=== PATIENT | male | born 1960 | race African-American/Black ===

== ENCOUNTER 2018-09-12 01:02 | Inpatient (IN) ==
[2018-09-12] MEDS ORDERED: FUROSEMIDE 100 MG/10 ML VIAL IV STA (01:17)
[2018-09-12 01:50] LABS: Basophils # 0.1 10*3/uL (0.0-0.2); Basophils % 1.4 % (0.0-0.8); Eosinophils # 0.2 10*3/uL (0.0-0.87); Eosinophils % 4.5 % (0.00-10.9); Hematocrit 23.4 VOL% (42.0-52.0); Hemoglobin 7.5 GM/DL (14.0-18.0); Immature Granulocytes % 0.3 %; Immature Granulocytes Absolute 0.01 #; Lymphocytes # 0.9 10*3/uL (1.4-4.0); Lymphocytes % 25.8 % (21.2-54.2); Mean Corpuscular HGB Conc 32.1 GM/DL (32-36); Mean Corpuscular Hemoglobin 28 PG (27-34); Mean Corpuscular Volume 88.3 FL (87-102); Mean Platelet Volume 10.6 FL (9.6-12.0); Monocytes # 0.5 10*3/uL (0.11-0.8); Neutrophils # 1.9 10*3/uL (1.4-7.4); Platelet Count 171 T/CUMM (130-400); Red Blood Count 2.65 MC/CUMM (3.8-5.5); Red Cell Distribution Width 15.9 % (9.3-17.3); White Blood Count 3.6 T/CUMM (4-12)
[2018-09-12] MEDS ORDERED: FUROSEMIDE 40 MG/4 ML VIAL ONE (01:53)
[2018-09-12 02:30] LABS: PT Patient Result 32.8 SECS
[2018-09-12 02:31] LABS: Albumin 3.9 G/DL (3.4-5.0); Bilirubin,Total 0.5 MG/DL (0.2-1.0); Calcium 8.5 MG/DL (8.5-10.1); Osmolality,Calculated 273.5 MOS/KG (273-304); Potassium 4.9 MMOL/L (3.5-5.1); Total Protein 8.2 G/DL (6.4-8.3)
[2018-09-12] MEDS ORDERED: PANTOPRAZOLE INJ 80 MG in SODIUM CHLORIDE 0.9% 100 ML IV ONE (02:44)
[2018-09-12] MEDS ORDERED: PANTOPRAZOLE 40 MG VIAL IV ONE ×2 (03:02→03:03)
[2018-09-12] MEDS ORDERED: DEXTROSE 50% 25 GM/50 ML VIAL IV PRN (04:06)
[2018-09-12] MEDS ORDERED: ACETAMINOPHEN 325 MG TABLET PO PRN (04:06)
[2018-09-12] MEDS ORDERED: GLUCAGON 1 MG VIAL IM PRN (04:06)
[2018-09-12] MEDS ORDERED: ONDANSETRON 4 MG/2 ML VIAL IV PRN (04:06)
[2018-09-12] MEDS ORDERED: SODIUM CHLORIDE 0.9% 1,000 ML IV PRN (04:09)
[2018-09-12] MEDS ORDERED: FUROSEMIDE 40 MG/4 ML VIAL IV PRN (04:09)
[2018-09-12 05:36] LABS: Troponin I 0.073 NG/ML (0.00-0.045)
[2018-09-12 06:29] LABS: Hepatitis A Ab IgM Quant 0.15 Index; Hepatitis A Ab IgM Result Negative (Negative); Hepatitis B Core IgM Quant 0.06 Index; Hepatitis B Core IgM Result Negative (Negative); Hepatitis B Surface Ag Quant < 0.10 Index; Hepatitis B Surface Ag Result Negative (Negative); Hepatitis C Virus Ab Quant < 0.02 Index; Hepatitis C Virus Ab Result Negative (Negative)
[2018-09-12] MEDS: PANTOPRAZOLE INJ 200 MG in SODIUM CHLORIDE 0.9% 250 ML IV SCH (08:35)
[2018-09-12] MEDS ORDERED: ASPIRIN CHEW 81 MG TABLET PO ONE (09:23)
[2018-09-12] MEDS: MAGNESIUM OXIDE 400 MG TABLET PO SCH (09:24)
[2018-09-12 11:30] LABS: Troponin I 0.073 NG/ML (0.00-0.045)
[2018-09-12] MEDS ORDERED: LORazepam 2 MG/1 ML VIAL IV PRN (12:51)
[2018-09-12] MEDS: ASPIRIN EC 81 MG TABLET PO SCH (13:54)
[2018-09-12] MEDS: INSULIN REGULAR 100 UNIT/ML SUBCUT SCH ×3 (13:54→22:55)
[2018-09-12] MEDS ORDERED: FUROSEMIDE 40 MG/4 ML VIAL IV SCH (16:00)
[2018-09-12] MEDS: SPIRONOLACTONE 25 MG TABLET PO SCH (16:52)
[2018-09-12] MEDS: FUROSEMIDE 40 MG/4 ML VIAL IV SCH (16:53)
[2018-09-12] MEDS: CARVEDILOL 6.25 MG TABLET PO SCH ×2 (16:53→20:51)
[2018-09-13 06:40] LABS: Basophils % 0.6 % (0.0-0.8); Eosinophils # 0.2 10*3/uL (0.0-0.87); Eosinophils % 4.5 % (0.00-10.9); Immature Granulocytes % 0.3 %; Immature Granulocytes Absolute 0.01 #; Lymphocytes # 0.9 10*3/uL (1.4-4.0); Lymphocytes % 27.4 % (21.2-54.2); Mean Corpuscular HGB Conc 31.8 GM/DL (32-36); Mean Corpuscular Hemoglobin 28 PG (27-34); Mean Corpuscular Volume 86.6 FL (87-102); Mean Platelet Volume 11.2 FL (9.6-12.0); Monocytes # 0.5 10*3/uL (0.11-0.8); Neutrophils # 1.7 10*3/uL (1.4-7.4); Neutrophils % 51.2 % (38.7-73.9); Platelet Count 171 T/CUMM (130-400); Red Blood Count 2.54 MC/CUMM (3.8-5.5); Red Cell Distribution Width 15.7 % (9.3-17.3); White Blood Count 3.3 T/CUMM (4-12)
[2018-09-13 06:49] LABS: INR 2.4
[2018-09-13 06:52] LABS: PT Patient Result 26.2 SECS
[2018-09-13 07:00] LABS: Calcium 8.6 MG/DL (8.5-10.1); Osmolality,Calculated 273.4 MOS/KG (273-304); Potassium 3.9 MMOL/L (3.5-5.1)
[2018-09-13 07:06] LABS: Eosinophils 3 % (0-10); Hypochromasia 1+; Lymphocytes 29 % (20-55); Microcytosis 1+; Segmented Neutrophils 66 % (50-85); Total Cells Counted 100
[2018-09-13 07:07] LABS: Platelet Estimate Decreased; Polychromasia Few
[2018-09-13 07:12] LABS: Calcium 8.3 MG/DL (8.5-10.1); Osmolality,Calculated 274.4 MOS/KG (273-304)
[2018-09-13] MEDS: INSULIN REGULAR 100 UNIT/ML SUBCUT SCH ×4 (07:39→20:49)
[2018-09-13] MEDS: PANTOPRAZOLE INJ 200 MG in SODIUM CHLORIDE 0.9% 250 ML IV SCH ×2 (08:44→14:08)
[2018-09-13] MEDS: ASPIRIN EC 81 MG TABLET PO SCH (08:45)
[2018-09-13] MEDS: MAGNESIUM OXIDE 400 MG TABLET PO SCH (08:45)
[2018-09-13] MEDS: SPIRONOLACTONE 25 MG TABLET PO SCH (08:45)
[2018-09-13] MEDS: CARVEDILOL 6.25 MG TABLET PO SCH ×2 (08:45→20:50)
[2018-09-13] MEDS: FUROSEMIDE 40 MG/4 ML VIAL IV SCH ×2 (08:45→16:55)
[2018-09-13] MEDS ORDERED: SODIUM CHLORIDE 0.9% 1,000 ML IV PRN (08:51)
[2018-09-13 10:43] LABS: % Iron Saturation 6.8 % (18-50); Ferritin 42.8 ng/ml (26-388)
[2018-09-13] MEDS ORDERED: FUROSEMIDE 40 MG/4 ML VIAL IV ONE (13:28)
[2018-09-13 22:24] LABS: Hematocrit 29.4 VOL% (42.0-52.0); Hemoglobin 9.3 GM/DL (14.0-18.0)
[2018-09-14 05:56] LABS: Basophils % 0.9 % (0.0-0.8); Eosinophils # 0.1 10*3/uL (0.0-0.87); Eosinophils % 4.2 % (0.00-10.9); Hematocrit 26.4 VOL% (42.0-52.0); Hemoglobin 8.6 GM/DL (14.0-18.0); Lymphocytes # 0.9 10*3/uL (1.4-4.0); Lymphocytes % 27.2 % (21.2-54.2); Mean Corpuscular HGB Conc 32.6 GM/DL (32-36); Mean Corpuscular Hemoglobin 29 PG (27-34); Mean Corpuscular Volume 87.4 FL (87-102); Mean Platelet Volume 10.7 FL (9.6-12.0); Monocytes # 0.6 10*3/uL (0.11-0.8); Monocytes % 16.8 % (1.7-12.7); Neutrophils # 1.7 10*3/uL (1.4-7.4); Neutrophils % 50.9 % (38.7-73.9); Platelet Count 183 T/CUMM (130-400); Red Blood Count 3.02 MC/CUMM (3.8-5.5); Red Cell Distribution Width 15.8 % (9.3-17.3); White Blood Count 3.3 T/CUMM (4-12)
[2018-09-14 06:01] LABS: INR 1.9
[2018-09-14 06:08] LABS: PT Patient Result 20.5 SECS
[2018-09-14 06:19] LABS: Albumin 3.6 G/DL (3.4-5.0); Bilirubin,Direct 0.39 MG/DL (0.0-0.20); Bilirubin,Indirect 0.7 MG/DL (0.0-1.0); Bilirubin,Total 1.1 MG/DL (0.2-1.0); Calcium 8.8 MG/DL (8.5-10.1); Osmolality,Calculated 275.2 MOS/KG (273-304); Potassium 3.8 MMOL/L (3.5-5.1)
[2018-09-14 07:24] LABS: Eosinophils 4 % (0-10); Hypochromasia 1+; Lymphocytes 25 % (20-55); Microcytosis 1+; Ovalocytes Slight; Platelet Estimate Adequate; Segmented Neutrophils 61 % (50-85); Total Cells Counted 100
[2018-09-14] MEDS: INSULIN REGULAR 100 UNIT/ML SUBCUT SCH ×4 (07:26→20:37)
[2018-09-14] MEDS: PANTOPRAZOLE INJ 200 MG in SODIUM CHLORIDE 0.9% 250 ML IV SCH (08:17)
[2018-09-14] MEDS: ASPIRIN EC 81 MG TABLET PO SCH (09:11)
[2018-09-14] MEDS: SPIRONOLACTONE 25 MG TABLET PO SCH (09:11)
[2018-09-14] MEDS: CARVEDILOL 6.25 MG TABLET PO SCH ×2 (09:11→20:37)
[2018-09-14] MEDS: MAGNESIUM OXIDE 400 MG TABLET PO SCH (09:11)
[2018-09-14] MEDS: FUROSEMIDE 40 MG/4 ML VIAL IV SCH ×2 (09:11→16:00)
[2018-09-14] MEDS ORDERED: POTASSIUM CHLORIDE 20 MEQ TABLET PO ONE (09:30)
[2018-09-14] MEDS ORDERED: MAGNESIUM SULF RIDER 2 GM in PREMIX 1 EACH IV PRN (15:01)
[2018-09-14] MEDS ORDERED: POTASSIUM CHLORIDE RIDER 10 MEQ in PREMIX 1 EACH IV PRN (15:01)
[2018-09-15 03:35] LABS: Basophils % 1.2 % (0.0-0.8); Eosinophils # 0.2 10*3/uL (0.0-0.87); Eosinophils % 5.2 % (0.00-10.9); Hematocrit 25.8 VOL% (42.0-52.0); Hemoglobin 8.2 GM/DL (14.0-18.0); Immature Granulocytes % 0.3 %; Immature Granulocytes Absolute 0.01 #; Lymphocytes # 0.9 10*3/uL (1.4-4.0); Lymphocytes % 25.7 % (21.2-54.2); Mean Corpuscular HGB Conc 31.8 GM/DL (32-36); Mean Corpuscular Hemoglobin 28 PG (27-34); Mean Corpuscular Volume 88.1 FL (87-102); Mean Platelet Volume 10.6 FL (9.6-12.0); Monocytes # 0.5 10*3/uL (0.11-0.8); Monocytes % 15.3 % (1.7-12.7); Neutrophils # 1.8 10*3/uL (1.4-7.4); Neutrophils % 52.3 % (38.7-73.9); Platelet Count 177 T/CUMM (130-400); Red Blood Count 2.93 MC/CUMM (3.8-5.5); Red Cell Distribution Width 15.8 % (9.3-17.3); White Blood Count 3.5 T/CUMM (4-12)
[2018-09-15 03:41] LABS: INR 1.7
[2018-09-15 04:05] LABS: Calcium 8.5 MG/DL (8.5-10.1); Osmolality,Calculated 277.2 MOS/KG (273-304)
[2018-09-15] MEDS: INSULIN REGULAR 100 UNIT/ML SUBCUT SCH ×4 (08:57→21:09)
[2018-09-15] MEDS: MAGNESIUM OXIDE 400 MG TABLET PO SCH (12:13)
[2018-09-15] MEDS: ASPIRIN EC 81 MG TABLET PO SCH (12:13)
[2018-09-15] MEDS: CARVEDILOL 6.25 MG TABLET PO SCH ×2 (12:13→21:06)
[2018-09-15] MEDS: SPIRONOLACTONE 25 MG TABLET PO SCH ×2 (12:14→16:11)
[2018-09-15] MEDS: FUROSEMIDE 40 MG/4 ML VIAL IV SCH ×2 (12:14→16:10)
[2018-09-15] MEDS ORDERED: DIAZEPAM 5 MG TABLET PO ONE (12:30)
[2018-09-15] MEDS ORDERED: diphenhydrAMINE CAP 25 MG CAPSULE PO ONE (12:30)
[2018-09-15] MEDS: PANTOPRAZOLE 40 MG VIAL IV SCH (21:06)
[2018-09-16 03:52] LABS: Basophils % 1.1 % (0.0-0.8); Eosinophils # 0.2 10*3/uL (0.0-0.87); Eosinophils % 6.4 % (0.00-10.9); Hematocrit 26.4 VOL% (42.0-52.0); Hemoglobin 8.3 GM/DL (14.0-18.0); Immature Granulocytes % 0.6 %; Immature Granulocytes Absolute 0.02 #; Lymphocytes % 29.1 % (21.2-54.2); Mean Corpuscular HGB Conc 31.4 GM/DL (32-36); Mean Corpuscular Hemoglobin 28 PG (27-34); Mean Corpuscular Volume 88.6 FL (87-102); Mean Platelet Volume 10.7 FL (9.6-12.0); Monocytes # 0.5 10*3/uL (0.11-0.8); Monocytes % 15.1 % (1.7-12.7); Neutrophils # 1.7 10*3/uL (1.4-7.4); Neutrophils % 47.7 % (38.7-73.9); Platelet Count 174 T/CUMM (130-400); Red Blood Count 2.98 MC/CUMM (3.8-5.5); Red Cell Distribution Width 15.8 % (9.3-17.3); White Blood Count 3.6 T/CUMM (4-12)
[2018-09-16 04:12] LABS: Calcium 8.7 MG/DL (8.5-10.1); Osmolality,Calculated 274.4 MOS/KG (273-304); Potassium 3.8 MMOL/L (3.5-5.1)
[2018-09-16] MEDS: INSULIN REGULAR 100 UNIT/ML SUBCUT SCH ×4 (08:39→20:57)
[2018-09-16] MEDS: ASPIRIN EC 81 MG TABLET PO SCH (08:41)
[2018-09-16] MEDS: SPIRONOLACTONE 25 MG TABLET PO SCH (08:41)
[2018-09-16] MEDS: MAGNESIUM OXIDE 400 MG TABLET PO SCH (08:41)
[2018-09-16] MEDS: FUROSEMIDE 40 MG/4 ML VIAL IV SCH ×2 (08:41→16:14)
[2018-09-16] MEDS: CARVEDILOL 6.25 MG TABLET PO SCH ×2 (08:41→20:57)
[2018-09-16] MEDS: PANTOPRAZOLE 40 MG VIAL IV SCH ×2 (08:42→20:58)
[2018-09-16 12:38] LABS: Albumin 3.7 G/DL (3.4-5.0); Bilirubin,Direct 0.31 MG/DL (0.0-0.20); Bilirubin,Indirect 0.4 MG/DL (0.0-1.0); Bilirubin,Total 0.7 MG/DL (0.2-1.0); Total Protein 8.2 G/DL (6.4-8.3)
[2018-09-17 03:53] LABS: Basophils % 0.9 % (0.0-0.8); Eosinophils # 0.3 10*3/uL (0.0-0.87); Eosinophils % 7.9 % (0.00-10.9); Hematocrit 27.4 VOL% (42.0-52.0); Hemoglobin 8.6 GM/DL (14.0-18.0); Immature Granulocytes % 0.3 %; Immature Granulocytes Absolute 0.01 #; Lymphocytes % 28.7 % (21.2-54.2); Mean Corpuscular HGB Conc 31.4 GM/DL (32-36); Mean Corpuscular Hemoglobin 28 PG (27-34); Mean Corpuscular Volume 87.8 FL (87-102); Mean Platelet Volume 10.7 FL (9.6-12.0); Monocytes # 0.5 10*3/uL (0.11-0.8); Monocytes % 14.8 % (1.7-12.7); Neutrophils # 1.6 10*3/uL (1.4-7.4); Neutrophils % 47.4 % (38.7-73.9); Platelet Count 174 T/CUMM (130-400); Red Blood Count 3.12 MC/CUMM (3.8-5.5); Red Cell Distribution Width 15.9 % (9.3-17.3); White Blood Count 3.3 T/CUMM (4-12)
[2018-09-17 04:18] LABS: Calcium 8.3 MG/DL (8.5-10.1); Osmolality,Calculated 276.2 MOS/KG (273-304); Potassium 3.4 MMOL/L (3.5-5.1)
[2018-09-17 05:25] LABS: Band Neutrophils 1 % (0-10); Eosinophils 14 % (0-10); Lymphocytes 29 % (20-55); Platelet Estimate Normal; Segmented Neutrophils 45 % (50-85); Total Cells Counted 100
[2018-09-17] MEDS ORDERED: POTASSIUM CHLORIDE RIDER 10 MEQ in PREMIX 1 EACH IV PRN (06:21)
[2018-09-17] MEDS: POTASSIUM CHLORIDE 20 MEQ TABLET PO PRN ×3 (06:27→11:47)
[2018-09-17] MEDS: INSULIN REGULAR 100 UNIT/ML SUBCUT SCH ×4 (07:06→21:06)
[2018-09-17] MEDS: CARVEDILOL 6.25 MG TABLET PO SCH ×2 (08:41→21:07)
[2018-09-17] MEDS: ASPIRIN EC 81 MG TABLET PO SCH (08:41)
[2018-09-17] MEDS: SPIRONOLACTONE 25 MG TABLET PO SCH (08:41)
[2018-09-17] MEDS: FUROSEMIDE 40 MG/4 ML VIAL IV SCH ×2 (08:42→16:01)
[2018-09-17] MEDS: PANTOPRAZOLE 40 MG VIAL IV SCH ×2 (08:42→21:07)
[2018-09-17] MEDS: MAGNESIUM OXIDE 400 MG TABLET PO SCH (08:42)
[2018-09-18 03:57] LABS: Basophils # 0.1 10*3/uL (0.0-0.2); Basophils % 1.5 % (0.0-0.8); Eosinophils # 0.3 10*3/uL (0.0-0.87); Eosinophils % 8.9 % (0.00-10.9); Hematocrit 26.8 VOL% (42.0-52.0); Hemoglobin 8.6 GM/DL (14.0-18.0); Immature Granulocytes % 0.3 %; Immature Granulocytes Absolute 0.01 #; Lymphocytes # 0.9 10*3/uL (1.4-4.0); Lymphocytes % 28.3 % (21.2-54.2); Mean Corpuscular HGB Conc 32.1 GM/DL (32-36); Mean Corpuscular Hemoglobin 28 PG (27-34); Mean Corpuscular Volume 88.2 FL (87-102); Mean Platelet Volume 10.9 FL (9.6-12.0); Monocytes # 0.6 10*3/uL (0.11-0.8); Monocytes % 16.9 % (1.7-12.7); Neutrophils # 1.4 10*3/uL (1.4-7.4); Neutrophils % 44.1 % (38.7-73.9); Platelet Count 166 T/CUMM (130-400); Red Blood Count 3.04 MC/CUMM (3.8-5.5); Red Cell Distribution Width 15.8 % (9.3-17.3); White Blood Count 3.3 T/CUMM (4-12)
[2018-09-18 04:27] LABS: Calcium 8.8 MG/DL (8.5-10.1); Osmolality,Calculated 279.1 MOS/KG (273-304); Potassium 3.7 MMOL/L (3.5-5.1)
[2018-09-18 04:58] LABS: Eosinophils 5 % (0-10); Hypochromasia 1+; Lymphocytes 28 % (20-55); Ovalocytes Slight; Platelet Estimate Adequate; Segmented Neutrophils 52 % (50-85); Total Cells Counted 100
[2018-09-18] MEDS: INSULIN REGULAR 100 UNIT/ML SUBCUT SCH ×4 (07:46→21:01)
[2018-09-18] MEDS: FUROSEMIDE 40 MG/4 ML VIAL IV SCH ×2 (08:40→16:46)
[2018-09-18] MEDS: PANTOPRAZOLE 40 MG VIAL IV SCH ×2 (08:40→21:05)
[2018-09-18] MEDS ORDERED: PROPOFOL 200 MG/20 ML VIAL IV ONE (10:00)
[2018-09-18] MEDS ORDERED: KETAMINE 500 MG/10 ML VIAL ONE (10:16)
[2018-09-18] MEDS: ASPIRIN EC 81 MG TABLET PO SCH (10:32)
[2018-09-18] MEDS: MAGNESIUM OXIDE 400 MG TABLET PO SCH (10:32)
[2018-09-18] MEDS: CARVEDILOL 6.25 MG TABLET PO SCH ×2 (10:32→21:04)
[2018-09-18] MEDS: SPIRONOLACTONE 25 MG TABLET PO SCH (10:32)
[2018-09-18] MEDS ORDERED: BISACODYL 5 MG TABLET PO ONE (12:00)
[2018-09-18] MEDS ORDERED: POTASSIUM CHLORIDE 20 MEQ TABLET PO ONE (13:00)
[2018-09-18] MEDS ORDERED: POLYETHYLENE GLYCOL POWDER 255 GM BOTTLE PO ONE (18:00)
[2018-09-19 04:25] LABS: Basophils # 0.1 10*3/uL (0.0-0.2); Basophils % 1.6 % (0.0-0.8); Eosinophils # 0.3 10*3/uL (0.0-0.87); Eosinophils % 8.1 % (0.00-10.9); Hematocrit 28.1 VOL% (42.0-52.0); Hemoglobin 8.8 GM/DL (14.0-18.0); Immature Granulocytes % 0.3 %; Immature Granulocytes Absolute 0.01 #; Lymphocytes # 1.1 10*3/uL (1.4-4.0); Lymphocytes % 28.8 % (21.2-54.2); Mean Corpuscular HGB Conc 31.3 GM/DL (32-36); Mean Corpuscular Hemoglobin 28 PG (27-34); Mean Corpuscular Volume 88.4 FL (87-102); Monocytes # 0.6 10*3/uL (0.11-0.8); Monocytes % 15.1 % (1.7-12.7); Neutrophils # 1.7 10*3/uL (1.4-7.4); Neutrophils % 46.1 % (38.7-73.9); Platelet Count 155 T/CUMM (130-400); Red Blood Count 3.18 MC/CUMM (3.8-5.5); Red Cell Distribution Width 15.6 % (9.3-17.3); White Blood Count 3.7 T/CUMM (4-12)
[2018-09-19 04:27] LABS: INR 1.3; PT Patient Result 13.7 SECS
[2018-09-19 04:47] LABS: Calcium 8.9 MG/DL (8.5-10.1); Osmolality,Calculated 273.2 MOS/KG (273-304); Potassium 3.4 MMOL/L (3.5-5.1)
[2018-09-19] MEDS: INSULIN REGULAR 100 UNIT/ML SUBCUT SCH ×4 (08:44→21:03)
[2018-09-19] MEDS ORDERED: PROPOFOL 200 MG/20 ML VIAL IV ONE (09:00)
[2018-09-19] MEDS ORDERED: LIDOCAINE 2% 5 ML VIAL ONE (09:00)
[2018-09-19] MEDS: SPIRONOLACTONE 25 MG TABLET PO SCH (11:56)
[2018-09-19] MEDS: POTASSIUM CHLORIDE 20 MEQ TABLET PO SCH (11:56)
[2018-09-19] MEDS: MAGNESIUM OXIDE 400 MG TABLET PO SCH (11:56)
[2018-09-19] MEDS: FUROSEMIDE 80 MG TABLET PO SCH ×2 (11:56→16:43)
[2018-09-19] MEDS: POTASSIUM CHLORIDE 20 MEQ TABLET PO PRN ×2 (11:56→13:46)
[2018-09-19] MEDS: ASPIRIN EC 81 MG TABLET PO SCH (11:56)
[2018-09-19] MEDS: CARVEDILOL 6.25 MG TABLET PO SCH ×2 (11:56→21:05)
[2018-09-19] MEDS: PANTOPRAZOLE 40 MG VIAL IV SCH ×2 (11:57→21:05)
[2018-09-19] MEDS ORDERED: POTASSIUM CHLORIDE 20 MEQ TABLET PO ONE (12:54)
[2018-09-19] MEDS ORDERED: diphenhydrAMINE CAP 25 MG CAPSULE PO ONE (13:11)
[2018-09-19] MEDS ORDERED: DIAZEPAM 5 MG TABLET PO ONE (13:11)
[2018-09-19] MEDS ORDERED: MAGNESIUM SULF RIDER 2 GM in PREMIX 1 EACH IV PRN (13:11)
[2018-09-19] MEDS ORDERED: POTASSIUM CHLORIDE RIDER 10 MEQ in PREMIX 1 EACH IV PRN (13:11)
[2018-09-19 15:14] LABS: Calcium 9.1 MG/DL (8.5-10.1); Osmolality,Calculated 275.2 MOS/KG (273-304); Potassium 4.6 MMOL/L (3.5-5.1)
[2018-09-20 04:25] LABS: Basophils % 0.9 % (0.0-0.8); Eosinophils # 0.3 10*3/uL (0.0-0.87); Eosinophils % 8.2 % (0.00-10.9); Hemoglobin 8.5 GM/DL (14.0-18.0); Immature Granulocytes % 0.3 %; Immature Granulocytes Absolute 0.01 #; Mean Corpuscular HGB Conc 31.5 GM/DL (32-36); Mean Corpuscular Hemoglobin 28 PG (27-34); Mean Corpuscular Volume 88.2 FL (87-102); Monocytes # 0.6 10*3/uL (0.11-0.8); Monocytes % 16.8 % (1.7-12.7); Neutrophils # 1.5 10*3/uL (1.4-7.4); Neutrophils % 44.8 % (38.7-73.9); Platelet Count 148 T/CUMM (130-400); Red Blood Count 3.06 MC/CUMM (3.8-5.5); Red Cell Distribution Width 15.6 % (9.3-17.3); White Blood Count 3.3 T/CUMM (4-12)
[2018-09-20 05:00] LABS: Calcium 8.9 MG/DL (8.5-10.1); Osmolality,Calculated 274.2 MOS/KG (273-304); Potassium 4.6 MMOL/L (3.5-5.1)
[2018-09-20 05:04] LABS: Eosinophils 12 % (0-10); Hypochromasia 1+; Lymphocytes 17 % (20-55); Platelet Estimate Normal; Segmented Neutrophils 53 % (50-85); Total Cells Counted 100
[2018-09-20] MEDS: DILTIAZEM 60 MG TABLET PO SCH ×2 (07:15→08:29)
[2018-09-20] MEDS: INSULIN REGULAR 100 UNIT/ML SUBCUT SCH ×2 (07:37→12:04)
[2018-09-20] MEDS: POTASSIUM CHLORIDE 20 MEQ TABLET PO SCH (08:28)
[2018-09-20] MEDS: SPIRONOLACTONE 25 MG TABLET PO SCH (08:28)
[2018-09-20] MEDS: FUROSEMIDE 80 MG TABLET PO SCH (08:28)
[2018-09-20] MEDS: ASPIRIN EC 81 MG TABLET PO SCH (08:28)
[2018-09-20] MEDS: CARVEDILOL 6.25 MG TABLET PO SCH (08:28)
[2018-09-20] MEDS: MAGNESIUM OXIDE 400 MG TABLET PO SCH (08:28)
[2018-09-20] MEDS: PANTOPRAZOLE 40 MG VIAL IV SCH (08:29)
[2018-09-20] MEDS ORDERED: DIAZEPAM 5 MG TABLET PO ONE (12:00)
[2018-09-20] MEDS ORDERED: diphenhydrAMINE CAP 25 MG CAPSULE PO ONE (12:00)
[2018-09-20 12:08] VITALS: BP 101/66
== END 2018-09-20 14:25 | disposition home or self-care (01) | DRG 813 ==
LOC: EDUNIT# → EDBD → N.ED 01:02 → SUATTDRO 04:06 → N.EDINP 04:06 → N.TELES 12:03
PROVIDERS: ADMIT Internal Medicine; ATTEND Internal Medicine

== ENCOUNTER 2018-12-18 09:45 | Inpatient (IN) ==
[2018-12-18] MEDS ORDERED: FUROSEMIDE 40 MG/4 ML VIAL IV STA (10:12)
[2018-12-18 11:09] LABS: Basophils % 0.7 % (0.0-0.8); Eosinophils # 0.2 10*3/uL (0.0-0.87); Hematocrit 33.4 VOL% (42.0-52.0); Hemoglobin 10.5 GM/DL (14.0-18.0); Immature Granulocytes % 0.6 %; Immature Granulocytes Absolute 0.03 #; Lymphocytes # 0.8 10*3/uL (1.4-4.0); Lymphocytes % 14.2 % (21.2-54.2); Mean Corpuscular HGB Conc 31.4 GM/DL (32-36); Mean Corpuscular Hemoglobin 29 PG (27-34); Mean Platelet Volume 10.9 FL (9.6-12.0); Monocytes # 0.7 10*3/uL (0.11-0.8); Monocytes % 12.2 % (1.7-12.7); Neutrophils # 3.7 10*3/uL (1.4-7.4); Neutrophils % 69.3 % (38.7-73.9); Platelet Count 144 T/CUMM (130-400); Red Blood Count 3.67 MC/CUMM (3.8-5.5); Red Cell Distribution Width 18.5 % (9.3-17.3); White Blood Count 5.3 T/CUMM (4-12)
[2018-12-18 11:26] LABS: INR 1.2; PT Patient Result 12.5 SECS; Partial Thromboplastin Time 27.4 SECS (0-40)
[2018-12-18 11:32] LABS: Albumin 3.9 G/DL (3.4-5.0); Bilirubin,Total 1.2 MG/DL (0.2-1.0); Calcium 8.9 MG/DL (8.5-10.1); Osmolality,Calculated 266.4 MOS/KG (273-304); Potassium 4.1 MMOL/L (3.5-5.1); Total Protein 8.7 G/DL (6.4-8.3)
[2018-12-18] MEDS ORDERED: traZODone 50 MG TABLET PO PRN (15:59)
[2018-12-18] MEDS ORDERED: ONDANSETRON 4 MG/2 ML VIAL IV PRN (15:59)
[2018-12-18] MEDS ORDERED: diphenhydrAMINE CAP 25 MG CAPSULE PO PRN (15:59)
[2018-12-18] MEDS ORDERED: ACETAMINOPHEN 325 MG TABLET PO PRN (15:59)
[2018-12-18] MEDS ORDERED: guaiFENesin/DM ER 600-30 MG TABLET PO PRN (15:59)
[2018-12-18] MEDS ORDERED: DEXTROSE 50% 25 GM/50 ML VIAL IV PRN (16:09)
[2018-12-18] MEDS ORDERED: GLUCAGON 1 MG VIAL IM PRN (16:09)
[2018-12-18] MEDS: INSULIN REGULAR 100 UNIT/ML SUBCUT SCH ×2 (21:42→22:35)
[2018-12-18] MEDS: DOCUSATE SODIUM 100 MG CAPSULE PO SCH (21:44)
[2018-12-18] MEDS: CARVEDILOL 25 MG TABLET PO SCH (21:44)
[2018-12-19 05:25] LABS: Basophils % 1.1 % (0.0-0.8); Eosinophils # 0.1 10*3/uL (0.0-0.87); Eosinophils % 2.4 % (0.00-10.9); Hematocrit 30.4 VOL% (42.0-52.0); Hemoglobin 9.8 GM/DL (14.0-18.0); Immature Granulocytes % 0.5 %; Immature Granulocytes Absolute 0.02 #; Lymphocytes # 0.8 10*3/uL (1.4-4.0); Lymphocytes % 21.7 % (21.2-54.2); Mean Corpuscular HGB Conc 32.2 GM/DL (32-36); Mean Corpuscular Hemoglobin 29 PG (27-34); Mean Corpuscular Volume 88.4 FL (87-102); Mean Platelet Volume 11.3 FL (9.6-12.0); Monocytes # 0.6 10*3/uL (0.11-0.8); Monocytes % 15.8 % (1.7-12.7); Neutrophils # 2.2 10*3/uL (1.4-7.4); Neutrophils % 58.5 % (38.7-73.9); Platelet Count 146 T/CUMM (130-400); Red Blood Count 3.44 MC/CUMM (3.8-5.5); Red Cell Distribution Width 18.6 % (9.3-17.3); White Blood Count 3.7 T/CUMM (4-12)
[2018-12-19 05:39] LABS: Albumin 3.6 G/DL (3.4-5.0); Bilirubin,Total 1.3 MG/DL (0.2-1.0); Calcium 9.1 MG/DL (8.5-10.1); Osmolality,Calculated 273.1 MOS/KG (273-304); Potassium 3.6 MMOL/L (3.5-5.1); Total Protein 8.2 G/DL (6.4-8.3)
[2018-12-19 07:16] LABS: Eosinophils 1 % (0-10); Lymphocytes 12 % (20-55); Ovalocytes Few; Polychromasia Slight; Segmented Neutrophils 81 % (50-85); Total Cells Counted 100
[2018-12-19 07:17] LABS: Platelet Estimate Adequate; Schistocytes Slight; Target Cells Slight
[2018-12-19] MEDS: CARVEDILOL 25 MG TABLET PO SCH ×2 (10:18→22:14)
[2018-12-19] MEDS: INSULIN REGULAR 100 UNIT/ML SUBCUT SCH ×4 (10:18→22:14)
[2018-12-19] MEDS: SPIRONOLACTONE 25 MG TABLET PO SCH (10:18)
[2018-12-19] MEDS: ASPIRIN EC 81 MG TABLET PO SCH (10:18)
[2018-12-19] MEDS: DOCUSATE SODIUM 100 MG CAPSULE PO SCH ×2 (10:18→22:14)
[2018-12-19] MEDS: MAGNESIUM OXIDE 400 MG TABLET PO SCH (10:19)
[2018-12-19] MEDS: FERROUS SULFATE 325 MG TABLET PO SCH (10:19)
[2018-12-19] MEDS: PANTOPRAZOLE 40 MG TABLET PO SCH (10:19)
[2018-12-19] MEDS: FUROSEMIDE 40 MG/4 ML VIAL IV SCH ×2 (10:25→15:36)
[2018-12-19] MEDS ORDERED: DIGOXIN 0.25 MG TABLET PO SCH (13:00)
[2018-12-19 14:14] LABS: Neutrophils,Peritoneal Fluid 1 %
[2018-12-19 14:16] LABS: RBC,Peritoneal Fluid 45245 T/CUMM
[2018-12-19] MEDS ORDERED: POTASSIUM CHLORIDE 10 MEQ TABLET PO ONE (14:21)
[2018-12-19 14:24] LABS: Total Protein,Peritoneal Fluid 4.7 G/DL
[2018-12-20 03:19] LABS: Barbiturates Screen,Urine Negative (Negative); Benzodiazepines Screen,Urine Negative (Negative); Cannabinoid Screen,Urine Negative (Negative); Opiate Screen,Urine Negative (Negative); Phencyclidine Screen,Urine Negative (Negative)
[2018-12-20 04:30] LABS: Basophils # 0.1 10*3/uL (0.0-0.2); Basophils % 1.5 % (0.0-0.8); Eosinophils # 0.1 10*3/uL (0.0-0.87); Eosinophils % 3.3 % (0.00-10.9); Hematocrit 30.7 VOL% (42.0-52.0); Hemoglobin 9.7 GM/DL (14.0-18.0); Immature Granulocytes % 1.2 %; Immature Granulocytes Absolute 0.04 #; Lymphocytes % 28.7 % (21.2-54.2); Mean Corpuscular HGB Conc 31.6 GM/DL (32-36); Mean Corpuscular Hemoglobin 29 PG (27-34); Mean Corpuscular Volume 90.6 FL (87-102); Mean Platelet Volume 11.2 FL (9.6-12.0); Monocytes # 0.6 10*3/uL (0.11-0.8); Monocytes % 17.6 % (1.7-12.7); Neutrophils # 1.6 10*3/uL (1.4-7.4); Neutrophils % 47.7 % (38.7-73.9); Platelet Count 146 T/CUMM (130-400); Red Blood Count 3.39 MC/CUMM (3.8-5.5); Red Cell Distribution Width 18.6 % (9.3-17.3); White Blood Count 3.4 T/CUMM (4-12)
[2018-12-20 05:00] LABS: Calcium 8.5 MG/DL (8.5-10.1); Potassium 3.5 MMOL/L (3.5-5.1)
[2018-12-20 05:05] LABS: Albumin 3.3 G/DL (3.4-5.0); Bilirubin,Total 1.6 MG/DL (0.2-1.0); Calcium 8.5 MG/DL (8.5-10.1); Potassium 3.5 MMOL/L (3.5-5.1); Total Protein 7.5 G/DL (6.4-8.3)
[2018-12-20 05:12] LABS: Eosinophils 3 % (0-10); Lymphocytes 25 % (20-55); Segmented Neutrophils 59 % (50-85); Total Cells Counted 100
[2018-12-20 05:13] LABS: Acanthocytes 1+; Anisocytosis 2+; Hypochromasia 1+; Microcytosis 1+; Smudge Cells 1+
[2018-12-20 05:15] LABS: Ovalocytes 1+; Polychromasia Slight; Target Cells 1+
[2018-12-20] MEDS: FUROSEMIDE 40 MG/4 ML VIAL IV SCH (08:46)
[2018-12-20] MEDS: SPIRONOLACTONE 25 MG TABLET PO SCH (08:46)
[2018-12-20] MEDS: CARVEDILOL 25 MG TABLET PO SCH (08:46)
[2018-12-20] MEDS: ASPIRIN EC 81 MG TABLET PO SCH (08:46)
[2018-12-20] MEDS: MAGNESIUM OXIDE 400 MG TABLET PO SCH (08:46)
[2018-12-20] MEDS: DOCUSATE SODIUM 100 MG CAPSULE PO SCH (08:46)
[2018-12-20] MEDS: FERROUS SULFATE 325 MG TABLET PO SCH (08:46)
[2018-12-20] MEDS: INSULIN REGULAR 100 UNIT/ML SUBCUT SCH ×2 (08:48→11:32)
[2018-12-20] MEDS: PANTOPRAZOLE 40 MG TABLET PO SCH (08:49)
[2018-12-20 11:35] VITALS: BP 109/62
[2018-12-20] MEDS ORDERED: DIGOXIN 0.125 MG TABLET PO SCH (13:00)
== END 2018-12-20 15:11 | disposition home health service (06) | DRG 291 ==
LOC: EDBD → EDUNIT# → N.ED 09:45 → N.EDINP 15:59 → SUPCPDRO 15:59 → N.4E 20:22 → N.TELEN 12-19 17:03
PROVIDERS: ADMIT Hospitalist; ATTEND Hospitalist